=== PATIENT | male | born 1985 | race Two or more races ===

== ENCOUNTER 2020-02-29 11:43 | Observation (INO) ==
[2020-02-29] MEDS ORDERED: GLUCAGON 1 MG VIAL IM PRN (14:35)
[2020-02-29] MEDS ORDERED: hydrALAZINE 20 MG/1 ML VIAL IV PRN (14:35)
[2020-02-29] MEDS ORDERED: DEXTROSE 50% 25 GM/50 ML VIAL IV PRN (14:35)
[2020-02-29] MEDS ORDERED: ACETAMINOPHEN 325 MG TABLET PO PRN (14:35)
[2020-02-29 15:41] LABS: Basophils # 0.1 10*3/uL (0.0-0.2); Basophils % 0.5 % (0.0-0.8); Eosinophils # 0.1 10*3/uL (0.0-0.87); Eosinophils % 1.3 % (0.00-10.9); Hemoglobin 16.1 GM/DL (14.0-18.0); Immature Granulocytes % 0.6 %; Immature Granulocytes Absolute 0.06 #; Lymphocytes # 1.8 10*3/uL (1.4-4.0); Lymphocytes % 18.4 % (21.2-54.2); Mean Corpuscular Volume 98.7 FL (87-102); Mean Platelet Volume 11.1 FL (9.6-12.0); Monocytes % 11.6 % (1.7-12.7); Neutrophils % 67.6 % (38.7-73.9); Platelet Count 178 T/CUMM (130-400); Red Blood Count 4.66 MC/CUMM (3.8-5.5); Red Cell Distribution Width 11.2 % (9.3-17.3); White Blood Count 9.9 T/CUMM (4-12)
[2020-02-29] MEDS ORDERED: LORazepam 2 MG/1 ML VIAL IV PRN (15:44)
[2020-02-29] MEDS: PIPERACILLIN/TAZOBACTAM 3,375 MG in SODIUM CHLORIDE 0.9% 100 ML IV SCH (16:02)
[2020-02-29 16:10] LABS: Albumin 3.4 G/DL (3.4-5.0); Bilirubin,Total 0.8 MG/DL (0.2-1.0); Calcium 9.4 MG/DL (8.5-10.1); Total Protein 8.2 G/DL (6.4-8.3)
[2020-02-29] MEDS ORDERED: THIAMINE INJ 100 MG, FOLIC ACID INJ 1 MG, MULTIVITAMIN INJ 10 ML in SODIUM CHLORIDE 0.9... IV ONE (17:00)
[2020-02-29] MEDS: metFORMIN 500 MG TABLET PO SCH (18:35)
[2020-02-29] MEDS: VANCOMYCIN INJ 1,500 MG in SODIUM CHLORIDE 0.9% 500 ML IV SCH (22:27)
[2020-02-29 22:38] LABS: Apearance,Urine CLEAR (Clear); Bilirubin,Urine Negative (Negative); Blood, Urine Negative (Negative); Glucose,Urine (UA) >=500 mg/dL (Negative); Ketones,Urine 80 mg/dL (Negative); Nitrite,Urine Negative (Negative); Protein,Urine 30 MG/DL; RBC,Urine <1 /HPF (0-4); Urine Color Yellow (Yellow); WBC,Urine 1 /HPF (0-6)
[2020-03-01] MEDS: PIPERACILLIN/TAZOBACTAM 3,375 MG in SODIUM CHLORIDE 0.9% 100 ML IV SCH ×3 (00:57→16:31)
[2020-03-01 05:34] LABS: Basophils % 0.5 % (0.0-0.8); Eosinophils # 0.2 10*3/uL (0.0-0.87); Eosinophils % 2.5 % (0.00-10.9); Hemoglobin 15.1 GM/DL (14.0-18.0); Immature Granulocytes % 0.6 %; Immature Granulocytes Absolute 0.05 #; Lymphocytes # 1.8 10*3/uL (1.4-4.0); Lymphocytes % 20.1 % (21.2-54.2); Mean Corpuscular HGB Conc 35.1 GM/DL (32-36); Mean Corpuscular Volume 98.6 FL (87-102); Mean Platelet Volume 11.3 FL (9.6-12.0); Monocytes % 12.1 % (1.7-12.7); Neutrophils % 64.2 % (38.7-73.9); Platelet Count 176 T/CUMM (130-400); Red Blood Count 4.36 MC/CUMM (3.8-5.5); Red Cell Distribution Width 11.1 % (9.3-17.3); White Blood Count 8.9 T/CUMM (4-12)
[2020-03-01 06:15] LABS: Calcium 8.7 MG/DL (8.5-10.1); Risk Ratio 5.28; Thyroid Stimulating Hormone 2.08 uIU/ml (0.358-3.74); VLDL CHOLESTEROL 38.2 MG/DL
[2020-03-01] MEDS ORDERED: LIDOCAINE 1%/EPI INJ 20 ML VIAL ONE (08:45)
[2020-03-01] MEDS: PANTOPRAZOLE 40 MG TABLET PO SCH (09:06)
[2020-03-01] MEDS: metFORMIN 500 MG TABLET PO SCH ×2 (09:07→16:31)
[2020-03-01] MEDS: VANCOMYCIN INJ 1,500 MG in SODIUM CHLORIDE 0.9% 500 ML IV SCH ×2 (09:35→21:22)
[2020-03-01] MEDS: FENOFIBRATE 145 MG TABLET PO SCH (10:24)
[2020-03-01] MEDS: CHLORHEXIDINE 0.12% ORAL RINSE 60 ML BOTTLE SWISH/SPIT SCH ×2 (10:24→21:19)
[2020-03-01] MEDS ORDERED: fentaNYL 100 MCG/2 ML VIAL ONE (11:45)
[2020-03-01] MEDS ORDERED: SEVOFLURANE 1 UNIT/15 MINUTE INH ONE (11:45)
[2020-03-01] MEDS ORDERED: MIDAZOLAM 2 MG/2 ML VIAL ONE (11:45)
[2020-03-01] MEDS ORDERED: propofoL 200 MG/20 ML VIAL IV ONE (11:45)
[2020-03-01] MEDS ORDERED: LIDOCAINE 2% 5 ML VIAL ONE (11:45)
[2020-03-01] MEDS ORDERED: DEXAMETHASONE 4 MG/1 ML VIAL ONE (11:46)
[2020-03-01] MEDS ORDERED: ONDANSETRON 4 MG/2 ML VIAL ONE ×2 (11:46→11:52)
[2020-03-01] MEDS ORDERED: SUCCINYLCHOLINE 200 MG/10 ML VIAL ONE (11:46)
[2020-03-01] MEDS ORDERED: LACTATED RINGERS 1,000 ML IV ONE (11:46)
[2020-03-01] MEDS ORDERED: ONDANSETRON 4 MG/2 ML VIAL IV PRN (11:49)
[2020-03-01] MEDS ORDERED: HYDROmorphone 2 MG/1 ML VIAL ONE (11:52)
[2020-03-01] MEDS: HYDROmorphone 2 MG/1 ML VIAL IV PRN ×4 (11:56→12:23)
[2020-03-01] MEDS ORDERED: LABETALOL 100 MG/20 ML VIAL IV ONE (11:57)
[2020-03-01] MEDS: RIVAROXABAN 10 MG TABLET PO SCH (21:21)
[2020-03-02] MEDS: PIPERACILLIN/TAZOBACTAM 3,375 MG in SODIUM CHLORIDE 0.9% 100 ML IV SCH ×3 (01:10→16:04)
[2020-03-02 05:15] LABS: Basophils % 0.2 % (0.0-0.8); Eosinophils % 0.1 % (0.00-10.9); Hematocrit 41.2 VOL% (42.0-52.0); Hemoglobin 14.8 GM/DL (14.0-18.0); Immature Granulocytes % 0.6 %; Immature Granulocytes Absolute 0.06 #; Lymphocytes # 1.4 10*3/uL (1.4-4.0); Mean Corpuscular HGB Conc 35.9 GM/DL (32-36); Mean Corpuscular Volume 95.2 FL (87-102); Mean Platelet Volume 10.9 FL (9.6-12.0); Monocytes % 6.6 % (1.7-12.7); Neutrophils % 78.5 % (38.7-73.9); Platelet Count 220 T/CUMM (130-400); Red Blood Count 4.33 MC/CUMM (3.8-5.5); Red Cell Distribution Width 10.8 % (9.3-17.3); White Blood Count 9.7 T/CUMM (4-12)
[2020-03-02 05:37] LABS: Calcium 8.7 MG/DL (8.5-10.1); Osmolality,Calculated 272.2 MOS/KG (273-304)
[2020-03-02] MEDS: metFORMIN 500 MG TABLET PO SCH ×2 (08:37→16:04)
[2020-03-02] MEDS: lisinopriL 10 MG TABLET PO SCH (08:37)
[2020-03-02] MEDS: FENOFIBRATE 145 MG TABLET PO SCH (08:37)
[2020-03-02] MEDS: PANTOPRAZOLE 40 MG TABLET PO SCH (08:37)
[2020-03-02] MEDS: CHLORHEXIDINE 0.12% ORAL RINSE 60 ML BOTTLE SWISH/SPIT SCH ×2 (08:38→21:09)
[2020-03-02] MEDS: VANCOMYCIN INJ 1,500 MG in SODIUM CHLORIDE 0.9% 500 ML IV SCH (10:37)
[2020-03-02] MEDS: buPROPion SR 100 MG TABLET PO SCH ×2 (13:49→21:09)
[2020-03-02] MEDS: NICOTINE 21 MG/24 HR PATCH TRANSDERM SCH (13:50)
[2020-03-02] MEDS: RIVAROXABAN 10 MG TABLET PO SCH (21:09)
[2020-03-02] MEDS ORDERED: VANCOMYCIN INJ 1,750 MG in SODIUM CHLORIDE 0.9% 500 ML IV SCH (22:00)
[2020-03-03] MEDS: PIPERACILLIN/TAZOBACTAM 3,375 MG in SODIUM CHLORIDE 0.9% 100 ML IV SCH ×2 (01:41→09:21)
[2020-03-03 06:03] LABS: Basophils # 0.1 10*3/uL (0.0-0.2); Basophils % 0.8 % (0.0-0.8); Eosinophils # 0.2 10*3/uL (0.0-0.87); Hematocrit 39.5 VOL% (42.0-52.0); Hemoglobin 14.4 GM/DL (14.0-18.0); Immature Granulocytes % 0.7 %; Immature Granulocytes Absolute 0.04 #; Lymphocytes # 2.5 10*3/uL (1.4-4.0); Mean Corpuscular HGB Conc 36.5 GM/DL (32-36); Mean Corpuscular Volume 96.1 FL (87-102); Mean Platelet Volume 10.8 FL (9.6-12.0); Monocytes % 11.8 % (1.7-12.7); Neutrophils % 41.7 % (38.7-73.9); Platelet Count 213 T/CUMM (130-400); Red Blood Count 4.11 MC/CUMM (3.8-5.5); Red Cell Distribution Width 11.1 % (9.3-17.3)
[2020-03-03 06:20] LABS: Calcium 8.8 MG/DL (8.5-10.1); Osmolality,Calculated 281.7 MOS/KG (273-304)
[2020-03-03] MEDS: metFORMIN 500 MG TABLET PO SCH (09:16)
[2020-03-03] MEDS: NICOTINE 21 MG/24 HR PATCH TRANSDERM SCH (09:17)
[2020-03-03] MEDS: CHLORHEXIDINE 0.12% ORAL RINSE 60 ML BOTTLE SWISH/SPIT SCH (09:19)
[2020-03-03] MEDS: lisinopriL 10 MG TABLET PO SCH (09:19)
[2020-03-03] MEDS: FENOFIBRATE 145 MG TABLET PO SCH (09:19)
[2020-03-03] MEDS: PANTOPRAZOLE 40 MG TABLET PO SCH (09:19)
[2020-03-03] MEDS: buPROPion SR 100 MG TABLET PO SCH (09:19)
[2020-03-03 11:23] VITALS: BP 143/92
== END 2020-03-03 13:40 | disposition home or self-care (01) ==
LOC: INTOOBSV 13:31 → N.3E 13:31 → SUATTDRO 13:31
PROVIDERS: ADMIT Internal Medicine; ATTEND Hospitalist